=== PATIENT | female | born 1935 | race Caucasian/White ===

== ENCOUNTER 2017-02-01 14:48 | Inpatient (IN) | payer MEDICARE, OTHER ==
[~2017-02-01] VITALS: Ht 165.1 cm; Wt 95.3 kg
[2017-02-01 14:52] VITALS: BP 141/64
--- NOTE | 2017-02-01 15:19 | NUR ---
81 YEAR OLD FEMALE ADMITTED FROM [facility] VIA GURNEY IN STABLE CONDITION.V/S ARE STABLE.ORIENT THE PT TO ROOM AND SURROUNDINGS.
[2017-02-01] MEDS ORDERED: LEVO100T10 PO (15:45)
[2017-02-01] MEDS ORDERED: FAMO20TA8 PO (15:45)
[2017-02-01] MEDS ORDERED: ACET-2067 PO (15:45)
[2017-02-01] MEDS ORDERED: UMEC1BLS IH (15:45)
[2017-02-01] MEDS ORDERED: LOSA100T15 PO (15:45)
[2017-02-01] MEDS ORDERED: FLUT16SP BNOSTRILS (15:45)
[2017-02-01] MEDS ORDERED: GUAI5SYR4 PO (15:45)
[2017-02-01] MEDS ORDERED: GABA-532 PO (15:45)
[2017-02-01] MEDS ORDERED: HYDR-4077 PO (15:45)
[2017-02-01] MEDS ORDERED: PRAM0.258 PO (15:45)
[2017-02-01] MEDS ORDERED: CHOL100043 PO (15:45)
[2017-02-01 15:50] VITALS: BP 110/66
[2017-02-01] MEDS ORDERED: IV NS 1000 ML 1,000 ML IV SCH (17:30)
[2017-02-01] MEDS: CEFTRIAXONE 1 G in IV DEXTROSE 5% 50 ML IV SCH (17:56)
[2017-02-01] MEDS ORDERED: FAMOTIDINE 20 MG TABLET PO SCH (18:45)
[2017-02-01] MEDS ORDERED: ACETAMINOPHEN 650 MG SUPP.RECT RC PRN (18:45)
[2017-02-01] MEDS ORDERED: ONDANSETRON 4 MG/2 ML VIAL IV PRN (18:45)
[2017-02-01] MEDS: GABAPENTIN 100 MG CAPSULE PO SCH (18:52)
[2017-02-01] MEDS: hydrALAZINE HCL 50 MG TABLET PO SCH (18:52)
[2017-02-01 18:54] LABS: CALCIUM 7.9 mg/dL (8.5-10.1); POTASSIUM 4.2 mmol/L (3.5-5.1)
[2017-02-01 18:55] LABS: CREATININE 4.3 mg/dL (0.6-1.3)
[2017-02-01 18:58] LABS: BASOPHILS # (AUTO) 0.1 K/uL (0.0-0.2); BASOPHILS % (AUTO) 0.5 % (0.0-2.0); EOSINOPHILS % (AUTO) 0.1 % (0.0-7.0); HEMATOCRIT 38.4 % (37.0-47.0); HEMOGLOBIN 12.6 g/dL (12.0-16.0); LYMPHOCYTES # (AUTO) 0.8 K/uL (0.8-4.8); LYMPHOCYTES % (AUTO) 4.9 % (20.5-51.5); MEAN CORPUSCULAR HEMOGLOBIN 27.7 uug (27.0-31.0); MEAN CORPUSCULAR HGB CONC 33 g/dL (32.0-37.0); MEAN CORPUSCULAR VOLUME 84.4 fL (81.0-99.0); MONOCYTES # (AUTO) 0.9 K/uL (0.1-1.30); MONOCYTES % (AUTO) 5.9 % (0.0-11.0); NEUTROPHILS # (AUTO) 14.1 K/uL (1.8-8.9); NEUTROPHILS % (AUTO) 88.6 % (38.5-71.5); PLATELET COUNT (AUTO) 197 K/uL (150-450); RED BLOOD CELL COUNT(AUTO) 4.56 MIL/uL (4.20-5.40); RED CELL DISTRIBUTION WIDTH 13.3 % (11.5-14.5); WHITE BLOOD COUNT (AUTO) 15.9 K/uL (4.0-11.2)
[2017-02-01 19:24] LABS: BAND % (MANUAL) 6 % (0-10); LYMPHOCYTES % (MANUAL) 5 % (20-40); MONOCYTES % (MANUAL) 7 % (2-10); NEUTROPHILS % (MANUAL) 82 % (42-75); PLATELET ESTIMATE ADEQUATE
[2017-02-01 20:00] VITALS: BP 132/64
[2017-02-01] MEDS: TAMSULOSIN HCL 0.4 MG CAP.SR.24H PO SCH (21:36)
[2017-02-01] MEDS: PRAMIPEXOLE 0.25 MG TABLET PO SCH (21:36)
[2017-02-01] MEDS: IV D5 1/2 NS 1000 ML 1,000 ML IV PRN (21:39)
[2017-02-01 22:06] LABS: *BILIRUBIN,URIN NEGATIVE (NEGATIVE); *BLOOD, URINE 3+ (NEGATIVE); *CLARITY,URINE CLOUDY (CLEAR); *KETONES,URINE NEGATIVE (NEGATIVE); *PROTEIN,URINE 2+ (NEGATIVE); *UROBILINOGEN,URINE 0.2 E.U./dl (NORMAL); LEUKOCYTE ESTERASE ,URINE 1+ (NEGATIVE); NITRITE, URINE NEGATIVE (NEGATIVE); PH,URINE 5.5 (5.0-8.0); UGLUCOSE NEGATIVE (NEGATIVE)
[2017-02-01 22:20] LABS: *COLOR,URINE Brown (YELLOW)
[2017-02-01 22:21] LABS: RBC,URINE TNTC /HPF (0-3); SQUAMOUS EPITHELIAL CELL,UR MODERATE /HPF (NONE SEEN); WBC,URINE 20-50 /HPF (0-3)
[2017-02-02 05:54] VITALS: BP 131/66
[2017-02-02] MEDS: LEVOTHYROXINE SODIUM 100 MCG TABLET PO SCH (06:38)
[2017-02-02] MEDS: IV D5 1/2 NS 1000 ML 1,000 ML IV PRN ×2 (06:41→19:54)
[2017-02-02 06:52] LABS: BASOPHILS % (AUTO) 0.2 % (0.0-2.0); EOSINOPHILS % (AUTO) 0.3 % (0.0-7.0); HEMATOCRIT 38.1 % (37.0-47.0); HEMOGLOBIN 12.2 g/dL (12.0-16.0); LYMPHOCYTES # (AUTO) 0.8 K/uL (0.8-4.8); LYMPHOCYTES % (AUTO) 6.2 % (20.5-51.5); MEAN CORPUSCULAR HEMOGLOBIN 27.6 uug (27.0-31.0); MEAN CORPUSCULAR HGB CONC 32 g/dL (32.0-37.0); MEAN CORPUSCULAR VOLUME 86.3 fL (81.0-99.0); MONOCYTES # (AUTO) 1.2 K/uL (0.1-1.30); MONOCYTES % (AUTO) 9.5 % (0.0-11.0); NEUTROPHILS # (AUTO) 10.5 K/uL (1.8-8.9); NEUTROPHILS % (AUTO) 83.8 % (38.5-71.5); PLATELET COUNT (AUTO) 187 K/uL (150-450); RED BLOOD CELL COUNT(AUTO) 4.41 MIL/uL (4.20-5.40); RED CELL DISTRIBUTION WIDTH 13.5 % (11.5-14.5); WHITE BLOOD COUNT (AUTO) 12.5 K/uL (4.0-11.2)
--- NOTE | 2017-02-02 07:16 | NUR ---
PATIENT ASLEEP IN BED. KEPT NPO SINCE MIDNIGHT ORDERED. NEW IV HEPLOCK STARTED TO LEFT HAND #22 GAUGE. IVF INFUSING WELL. CALL LIGHT IN REACH. ALL NEEDS ATTENDED. WILL CONTINUE TO MONITOR. AFEBRILE. VSS.
[2017-02-02 07:39] LABS: ALBUMIN 2.3 g/dL (3.4-5.0); BILIRUBIN,TOTAL 0.6 mg/dL (0.2-1.0); CALCIUM 7.9 mg/dL (8.5-10.1); MAGNESIUM 1.9 mg/dL (1.8-2.4); POTASSIUM 4.1 mmol/L (3.5-5.1); TOTAL PROTEIN, SERUM 6.8 g/dL (6.4-8.2)
[2017-02-02 07:41] LABS: CREATININE 2.2 mg/dL (0.6-1.3)
[2017-02-02] MEDS ORDERED: ETOMIDATE 20 MG/10 ML VIAL MC ONE (07:50)
[2017-02-02] MEDS ORDERED: PROPOFOL 200 MG/20 ML BOTTLE IV ONE (07:50)
[2017-02-02] MEDS ORDERED: SEVOFLURANE 250 ML BOTTLE IH ONE (07:51)
[2017-02-02] MEDS ORDERED: LIDOCAINE HCL 1% 20 ML VIAL MC ONE (07:51)
[2017-02-02] MEDS ORDERED: LIDOCAINE-MPF 2% 5 ML VIAL MC ONE (07:57)
[2017-02-02 08:02] LABS: THYROID STIMULATING HORMONE 4.201 mIU/mL (0.358-3.740)
[2017-02-02] MEDS: PANTOPRAZOLE SODIUM 40 MG VIAL IV SCH (08:08)
[2017-02-02] MEDS: hydrALAZINE HCL 50 MG TABLET PO SCH ×2 (08:08→16:02)
[2017-02-02] MEDS: GABAPENTIN 100 MG CAPSULE PO SCH ×3 (08:12→16:02)
[2017-02-02 12:04] VITALS: BP 128/66
--- NOTE | 2017-02-02 12:11 | NUR ---
PT WENT TO OR VIA BED FOR SURGICAL PROCEDURE.
[2017-02-02] MEDS ORDERED: IOHEXOL-240 MG , 50 ML VIAL IV ONE (12:36)
--- NOTE | 2017-02-02 14:20 | NUR ---
PT RECEIVED FROM RECOVERY VIA BED IN STABLE CONDITION.V/S ATR STABLE.
[2017-02-02 14:24] VITALS: BP 137/71
[2017-02-02] MEDS: MORPHINE SULFATE 2 MG/1 ML DISP.SYRIN IV PRN (16:03)
[2017-02-02 16:04] VITALS: BP 131/68
[2017-02-02] MEDS: CEFTRIAXONE 1 G in IV DEXTROSE 5% 50 ML IV SCH (17:11)
[2017-02-02 17:53] LABS: POTASSIUM 4.1 mmol/L (3.5-5.1)
[2017-02-02 17:57] LABS: CREATININE 1.5 mg/dL (0.6-1.3)
[2017-02-02 17:58] LABS: BASOPHILS % (AUTO) 0.3 % (0.0-2.0); EOSINOPHILS # (AUTO) 0.1 K/uL (0.0-0.7); EOSINOPHILS % (AUTO) 1.3 % (0.0-7.0); HEMATOCRIT 36.5 % (37.0-47.0); HEMOGLOBIN 12.1 g/dL (12.0-16.0); LYMPHOCYTES % (AUTO) 9.2 % (20.5-51.5); MEAN CORPUSCULAR HEMOGLOBIN 28.3 uug (27.0-31.0); MEAN CORPUSCULAR HGB CONC 33 g/dL (32.0-37.0); MEAN CORPUSCULAR VOLUME 85.5 fL (81.0-99.0); MONOCYTES # (AUTO) 1.1 K/uL (0.1-1.30); MONOCYTES % (AUTO) 10.2 % (0.0-11.0); NEUTROPHILS # (AUTO) 8.4 K/uL (1.8-8.9); PLATELET COUNT (AUTO) 178 K/uL (150-450); RED BLOOD CELL COUNT(AUTO) 4.28 MIL/uL (4.20-5.40); WHITE BLOOD COUNT (AUTO) 10.6 K/uL (4.0-11.2)
--- NOTE | 2017-02-02 17:58 | NUR ---
PT REFUSED TO EAT HER DINNER . MADE AWARE.
[2017-02-02 19:00] VITALS: BP 120/55
[2017-02-02] MEDS: PRAMIPEXOLE 0.25 MG TABLET PO SCH (20:38)
[2017-02-02] MEDS: ATORVASTATIN 10 MG TABLET PO SCH (20:38)
[2017-02-02] MEDS: TAMSULOSIN HCL 0.4 MG CAP.SR.24H PO SCH (20:38)
--- NOTE | 2017-02-02 21:00 | NUR ---
1940 : CALLED answering service of Dr. Arriaza ,Dr Saldaña is application developer jessie. but md is not answering the call, will notify their service about my paged. 2100 : called again but Dr. Saldaña has a different answering service ,they already inform his service that i made a call and to call back to relay lab result.
[2017-02-03] MEDS: MORPHINE SULFATE 2 MG/1 ML DISP.SYRIN IV PRN (00:40)
[2017-02-03 04:00] VITALS: BP 134/68
[2017-02-03] MEDS: IV D5 1/2 NS 1000 ML 1,000 ML IV PRN (05:29)
--- NOTE | 2017-02-03 05:44 | NUR ---
afebrile svitlana mcgee d/cd. as ordered.
[2017-02-03] MEDS: LEVOTHYROXINE SODIUM 100 MCG TABLET PO SCH (06:36)
--- NOTE | 2017-02-03 06:50 | NUR ---
slept well overnight,given morphine for pain x1 but pt stated she has bad nightmares, vss,afebrile hsane removed. continue with iv fluids due to void,call light given,all needs attended.
[2017-02-03 07:30] LABS: ALBUMIN 2.1 g/dL (3.4-5.0); BILIRUBIN,TOTAL 0.5 mg/dL (0.2-1.0); CREATININE 1.1 mg/dL (0.6-1.3); MAGNESIUM 1.8 mg/dL (1.8-2.4); PHOSPHOROUS 2.3 mg/dL (2.5-4.9); TOTAL PROTEIN, SERUM 6.7 g/dL (6.4-8.2)
[2017-02-03 07:50] LABS: BASOPHILS % (AUTO) 0.2 % (0.0-2.0); EOSINOPHILS # (AUTO) 0.2 K/uL (0.0-0.7); EOSINOPHILS % (AUTO) 3.1 % (0.0-7.0); HEMATOCRIT 35.2 % (37.0-47.0); HEMOGLOBIN 11.3 g/dL (12.0-16.0); LYMPHOCYTES % (AUTO) 12.6 % (20.5-51.5); MEAN CORPUSCULAR HEMOGLOBIN 27.8 uug (27.0-31.0); MEAN CORPUSCULAR HGB CONC 32 g/dL (32.0-37.0); MEAN CORPUSCULAR VOLUME 86.4 fL (81.0-99.0); MONOCYTES # (AUTO) 0.8 K/uL (0.1-1.30); NEUTROPHILS % (AUTO) 74.1 % (38.5-71.5); PLATELET COUNT (AUTO) 191 K/uL (150-450); RED BLOOD CELL COUNT(AUTO) 4.07 MIL/uL (4.20-5.40); RED CELL DISTRIBUTION WIDTH 13.4 % (11.5-14.5)
[2017-02-03 08:00] VITALS: BP 138/62
--- NOTE | 2017-02-03 08:00 | NUR ---
AWAKE ALERT COOPERATE WELL NO SOB OR PAIN CONTINUE IVF INFUSION WELL VOIDING WELL 200ML POST F/C DISCONTINUE THIS MORNING ON FALL PRECAUTION CALL GARDNER IN REACH AND INSTRUCTION TO CALL WHEN NEEDED
[2017-02-03] MEDS: PANTOPRAZOLE SODIUM 40 MG VIAL IV SCH (08:19)
[2017-02-03] MEDS: GABAPENTIN 100 MG CAPSULE PO SCH ×3 (08:19→16:50)
[2017-02-03] MEDS: hydrALAZINE HCL 50 MG TABLET PO SCH ×2 (08:20→16:50)
[2017-02-03 11:41] VITALS: BP 142/72
--- NOTE | 2017-02-03 13:00 | NUR ---
ASSIST TO [facility]P VOIDING WELL AND UP IN CHAIR FOR LUNCH ,STATE DOES NOT FEEL HUNGRY PO FLD ENC RANDY MOD AMT
[2017-02-03] MEDS ORDERED: NEUTRA PHOS PACKET PO ONE (14:45)
[2017-02-03 16:02] VITALS: BP 148/75
--- NOTE | 2017-02-03 17:00 | NUR ---
HEMODYNAMIC STATUS STABLE NO ACUTE DISTRESS SAFETY MEASURE PROVIDED CALL GARDNER IN REACH
[2017-02-03] MEDS: CEFTRIAXONE 1 G in IV DEXTROSE 5% 50 ML IV SCH (17:02)
[2017-02-03 19:00] VITALS: BP 94/52
[2017-02-03] MEDS: TAMSULOSIN HCL 0.4 MG CAP.SR.24H PO SCH (19:58)
[2017-02-03] MEDS: ATORVASTATIN 10 MG TABLET PO SCH (19:58)
[2017-02-03] MEDS: PRAMIPEXOLE 0.25 MG TABLET PO SCH (20:00)
[2017-02-04 04:24] VITALS: BP 147/74
[2017-02-04] MEDS: PANTOPRAZOLE SODIUM 40 MG TABLET.DR PO SCH (06:30)
[2017-02-04] MEDS: LEVOTHYROXINE SODIUM 100 MCG TABLET PO SCH (06:31)
[2017-02-04 07:11] LABS: CALCIUM 8.4 mg/dL (8.5-10.1); MAGNESIUM 1.9 mg/dL (1.8-2.4); PHOSPHOROUS 2.8 mg/dL (2.5-4.9); POTASSIUM 4.1 mmol/L (3.5-5.1)
[2017-02-04 07:29] LABS: BASOPHILS % (AUTO) 0.2 % (0.0-2.0); EOSINOPHILS # (AUTO) 0.3 K/uL (0.0-0.7); EOSINOPHILS % (AUTO) 3.7 % (0.0-7.0); HEMATOCRIT 34.6 % (37.0-47.0); HEMOGLOBIN 11.5 g/dL (12.0-16.0); LYMPHOCYTES # (AUTO) 0.8 K/uL (0.8-4.8); LYMPHOCYTES % (AUTO) 11.9 % (20.5-51.5); MEAN CORPUSCULAR HEMOGLOBIN 28.6 uug (27.0-31.0); MEAN CORPUSCULAR HGB CONC 33 g/dL (32.0-37.0); MEAN CORPUSCULAR VOLUME 86.1 fL (81.0-99.0); MONOCYTES # (AUTO) 0.8 K/uL (0.1-1.30); MONOCYTES % (AUTO) 12.1 % (0.0-11.0); NEUTROPHILS % (AUTO) 72.1 % (38.5-71.5); PLATELET COUNT (AUTO) 221 K/uL (150-450); RED BLOOD CELL COUNT(AUTO) 4.02 MIL/uL (4.20-5.40); RED CELL DISTRIBUTION WIDTH 13.6 % (11.5-14.5); WHITE BLOOD COUNT (AUTO) 6.9 K/uL (4.0-11.2)
[2017-02-04] MEDS: GABAPENTIN 100 MG CAPSULE PO SCH ×3 (08:02→16:00)
[2017-02-04] MEDS: hydrALAZINE HCL 50 MG TABLET PO SCH ×2 (08:03→16:00)
[2017-02-04 12:00] VITALS: BP 121/58
[2017-02-04 16:02] VITALS: BP 132/63
[2017-02-04] MEDS: CEFTRIAXONE 1 G in IV DEXTROSE 5% 50 ML IV SCH (17:11)
[2017-02-04 19:00] VITALS: BP 126/60
[2017-02-04] MEDS: ATORVASTATIN 10 MG TABLET PO SCH (20:53)
[2017-02-04] MEDS: TAMSULOSIN HCL 0.4 MG CAP.SR.24H PO SCH (20:53)
[2017-02-04] MEDS: SULFAMETH/TRIMETH 800/160 MG TABLET PO SCH (20:53)
[2017-02-04] MEDS: PRAMIPEXOLE 0.25 MG TABLET PO SCH (20:57)
[2017-02-05 04:00] VITALS: BP 125/57
--- NOTE | 2017-02-05 07:00 | NUR ---
PATIENT RECEIVED IN ROOM UP SITTING ON CHAIR. ALERT AWAKE AND ORIENTED WITH NO S/S OF DISTRESS OBSERVED. DENIED PAIN. CALL LIGHT AT REACH.
[2017-02-05] MEDS: PANTOPRAZOLE SODIUM 40 MG TABLET.DR PO SCH (07:16)
[2017-02-05] MEDS: LEVOTHYROXINE SODIUM 100 MCG TABLET PO SCH (07:16)
[2017-02-05] MEDS: SULFAMETH/TRIMETH 800/160 MG TABLET PO SCH (08:28)
[2017-02-05] MEDS: GABAPENTIN 100 MG CAPSULE PO SCH ×2 (08:28→14:19)
[2017-02-05] MEDS: hydrALAZINE HCL 50 MG TABLET PO SCH (08:30)
[2017-02-05 11:32] VITALS: BP 104/52
--- NOTE | 2017-02-05 15:15 | NUR ---
NEW IV TO LFA GAUGE #20. PATIENT TAKEN FOR CT SCAN.
[2017-02-05] MEDS ORDERED: IOHEXOL 300MG/ML 100 ML INFUS..BTL ONE (15:25)
[2017-02-05] MEDS ORDERED: IV NORMAL SALINE 250 ML IV ONE (15:25)
[2017-02-05] MEDS ORDERED: NORMAL SALINE FLUSH 10 ML DISP.SYRIN ONE (15:25)
[2017-02-05] MEDS ORDERED: TAMS-3 PO (15:34)
[2017-02-05] MEDS ORDERED: SULF1TAB3 PO (15:34)
[2017-02-05 15:42] VITALS: BP 128/62
--- NOTE | 2017-02-05 16:33 | NUR ---
DISCHARGING PATIENT HOME IN A STABLE CONDITION. VSS. DENIED PAIN. DISCHARGE INSTRUCTIONS PROVIDED. LIST OF BELONGINGS SIGNED AND ALL WAS TAKEN. REFUSED TO TALK TO PHARMACIST REGARDING NEW PRESCRIPTIONS. IV REMOVED, PRESSURE APPLIED AND HEMOSTASIS ACHIEVED. PATIENT LEAVING VIA PRIVATE CAR ACCOMPANIED BY MCKENZIE LUO.
== END 2017-02-05 16:35 | disposition home health service (06) | DRG 871 ==
LOC: MED 14:48
PROVIDERS: ADMIT Internal Medicine; ATTEND Internal Medicine
PROC: 0TCB8ZZ Extirpation of Matter from Bladder, Via Natural or Artificial Opening Endoscopic (ICD-10-PCS; 2017-02-02)
PROC: 0T778DZ Dilation of Left Ureter with Intraluminal Device, Via Natural or Artificial Opening Endoscopic (ICD-10-PCS; principal; 2017-02-02 12:28)
DX: A41.9 Sepsis, unspecified organism (principal); E43 Unspecified severe protein-calorie malnutrition; N17.0 Acute kidney failure with tubular necrosis; N20.2 Calculus of kidney with calculus of ureter; N13.6 Pyonephrosis; I50.32 Chronic diastolic (congestive) heart failure; J90 Pleural effusion, not elsewhere classified; I13.0 Hypertensive heart and chronic kidney disease with heart failure and stage 1 through stage 4 chronic kidney disease, or unspecified chronic kidney disease; N39.0 Urinary tract infection, site not specified; N18.9 Chronic kidney disease, unspecified; E03.9 Hypothyroidism, unspecified; E66.9 Obesity, unspecified; G62.9 Polyneuropathy, unspecified; G89.29 Other chronic pain; K21.9 Gastro-esophageal reflux disease without esophagitis; Z87.442 Personal history of urinary calculi; R73.9 Hyperglycemia, unspecified; I11.0 Hypertensive heart disease with heart failure; Z68.34 Body mass index [BMI] 34.0-34.9, adult; K80.20 Calculus of gallbladder without cholecystitis without obstruction
CPT/HCPCS: 36415; 70030-TC; 74000; 76000; 83550; 83735; 84100; 84443; 85025; 87086; 93005; 97001; 97110; 97116; 97530; C1758; C1876; C9113; J0696; J2270; J3490; J7050; J7060; Q9966; Q9967